=== PATIENT | male | born 1990 | race Caucasian/White ===

== ENCOUNTER 2020-06-06 12:46 | Inpatient (IN) | payer BC, OTHER ==
[~2020-06-06] VITALS: Ht 165.1 cm; Wt 70.8 kg
[~2020-06-06 12:46] MED LIST: ACET500C94 PO
[2020-06-06 12:52] VITALS: BP 125/78
--- NOTE | 2020-06-06 12:56 | NUR ---
AMB TO BED 03 Addendum: 06/06/20 at 1304 by DARÍO BED 4
--- NOTE | 2020-06-06 13:06 | NUR ---
29 YO MALE CO RIGHT LOWER ABD PAIN. PT HAD APPY IN MARCH AND "CLEAN UP" PROCEDURE IN APRIL. PAIN UPON PALPATION AND SMALL MASS FELT ON RLQ. PT STATES THAT PAIN RADIATES TO BACK WHEN WALKING. PAIN IS 10/10 AT THIS TIME. NAUSEA, NO V/D.
[2020-06-06] MEDS ORDERED: NACL 0.9% 1,000 ML IV ONE (13:14)
[2020-06-06] MEDS ORDERED: KETOROLAC 30 MG/ML VIAL IVP ONE (13:15)
[2020-06-06] MEDS ORDERED: ONDANSETRON 4 MG/2 ML VIAL IVP ONE (13:15)
[2020-06-06 13:57] LABS: BASOPHILS % (AUTO) 0.1 % (0.0-2.0); EOSINOPHILS % (AUTO) 0.1 % (0.0-4.0); HEMATOCRIT 46.4 % (36-52); HEMOGLOBIN 15.6 g/dL (12.0-18.0); LYMPHOCYTES # (AUTO) 1.9 K/uL (2.0-11.5); MEAN CORPUSCULAR HEMOGLOBIN 30 pg (27-31); MEAN CORPUSCULAR HGB CONC 34 g/dL (33-37); MEAN CORPUSCULAR VOLUME 88.4 fL (80-94); MONOCYTES # (AUTO) 1.3 K/uL (0.8-1.0); NEUTROPHILS # (AUTO) 8.5 K/uL (1.8-7.7); NEUTROPHILS % (AUTO) 72.8 % (42.2-75.2); PLATELET COUNT (AUTO) 202 K/uL (140-450); RED BLOOD CELL COUNT(AUTO) 5.25 MIL/uL (4.20-6.10); RED CELL DISTRIBUTION WIDTH 12.7 % (11.6-13.7); WHITE BLOOD COUNT (AUTO) 11.6 K/uL (4.8-10.8)
[2020-06-06 14:11] LABS: ANION GAP 14.9 (8-16); CARBON DIOXIDE 26.9 mmol/L (21-32); CREATININE 0.8 mg/dL (0.6-1.3); POTASSIUM 3.8 mmol/L (3.5-5.1); TOTAL BILIRUBIN 1.1 mg/dL (0.0-1.0)
[2020-06-06 14:14] LABS: APPEARANCE,URINE HAZY (CLEAR); BILIRUBIN,URINE NEGATIVE (NEGATIVE); BLOOD, URINE 1+ (NEGATIVE); COLOR,URINE YELLOW (YELLOW); LEUKOCYTE ESTERASE ,URINE NEGATIVE (NEGATIVE); NITRITE, URINE NEGATIVE (NEGATIVE); UGLUCOSE NEGATIVE (NEGATIVE)
[2020-06-06 14:32] LABS: RBC,URINE 0-5 /HPF (0-5); WBC,URINE NONE SEEN /HPF (0-5)
--- NOTE | 2020-06-06 14:40 | NUR ---
PT TAKEN TO CT VIA WC
[2020-06-06] MEDS ORDERED: PIPERACILLIN/TAZOBACTAM 3.375 GM in DEXTROSE 5% 50 ML IV ONE (15:35)
[2020-06-06] MEDS ORDERED: metroNIDAZOLE 500 MG/NS PREMIX 100 ML IV ONE (15:35)
[2020-06-06] MEDS ORDERED: PIPERACILLIN/TAZOBACTAM 3.375 GM VIAL IV ONE (15:39)
[2020-06-06] MEDS ORDERED: ZOLPIDEM 5 MG TAB PO PRN (16:00)
[2020-06-06] MEDS ORDERED: HYDROcodone/APAP 5/325 MG 1 TAB TAB PO PRN (16:00)
[2020-06-06] MEDS ORDERED: MORPHINE SULFATE 2 MG/ML SYR IVP PRN (16:00)
[2020-06-06] MEDS ORDERED: DOCUSATE SODIUM 100 MG GELCAP PO PRN (16:00)
[2020-06-06] MEDS ORDERED: ACETAMINOPHEN 325 MG TAB PO PRN (16:00)
[2020-06-06] MEDS ORDERED: ONDANSETRON 4 MG/2 ML VIAL IM/IVP PRN (16:00)
[2020-06-06] MEDS ORDERED: LORazepam 2 MG/ML VIAL IM/IVP PRN (16:00)
[2020-06-06 16:36] LABS: PROTHROMBIN TIME 10.5 secs (10.8-13.4)
[2020-06-06 16:49] LABS: CHOL/HDL RATIO 3.4 (1-4.5); MAGNESIUM 1.7 mg/dL (1.8-2.4); PHOSPHORUS 2.7 mg/dL (2.5-4.9); THYROID STIMULATING HORMONE 0.12 uIU/mL (0.34-3.74)
[2020-06-06 17:58] LABS: BARBITURATE, URINE NEGATIVE ng/ml (NEG <=200); BENZODIAZEPINE, URINE NEGATIVE ng/mL (NEG <=200); CANNABINOID, URINE NEGATIVE ng/mL (NEG <=50); COCAINE, URINE NEGATIVE ng/mL (NEG <=300); OPIATE, URINE POSITIVE ng/mL (NEG <=2000); PHENCYCLIDINE SCREEN,URINE NEGATIVE ng/mL (NEG <=25)
[2020-06-06 18:10] VITALS: BP 114/60
--- NOTE | 2020-06-06 18:10 | NUR ---
RECEIVED REPORT FROM ER NURSE, PT AMBULATED TO BED, PT IS STABLE, NO SIGNS OF RESPIRATORY DISTRESS NOTED, PT HAS LAC 20G SALINE LOCK, WILL ADMINISTERED SCHEDULED FLUIDS ONCE VERIFIED, INTRODUCE PT TO ROOM, EXPLAINED USE OF CALL LIGHT, BED IN LOW POSITION, OBTAIN MRSA SWAB SAMPLE, SAFETY MEASURES IN PLACE, CALL LIGHT WITHIN REACH, UPDATED WHITE BOARD.
--- NOTE | 2020-06-06 18:20 | NUR ---
Patient will be admitted to care of DR BOURNE. Admited to MS. Will go to room 112B. Belongings list completed. Report to AMY WHITMAN.
[2020-06-06] MEDS: NACL 0.9% 1,000 ML IV SCH (18:52)
--- NOTE | 2020-06-06 18:54 | NUR ---
ADMINISTERED SCHEDULED FLUID, EDUCATION PROVIDED, PT VERBALIZED UNDERSTANDING, PT TOLERATED WELL, PT IS STABLE, CALL LIGHT WITHIN REACH.
--- NOTE | 2020-06-06 19:09 | NUR ---
NOTIFIED DR BOURNE PT DOES NOT WANT MORPHINE, RECEIVED TORB FOR TORADOL 30MG IV Q4H PRN, WILL INPUT ORDER AND CARRY IT OUT. Addendum: 06/06/20 at 1910 by Ria Serra RN DR BOURNE SAID TO D/C MORPHINE
[2020-06-06] MEDS ORDERED: KETOROLAC 30 MG/ML VIAL IVP PRN (19:15)
--- NOTE | 2020-06-06 19:15 | NUR ---
ENDORSE PT TO NIGHT NURSE FOR CONTINUITY OF CARE, PT IS STABLE
--- NOTE | 2020-06-06 19:15 | NUR ---
RECEIVED PT FROM DAY RN. PT AOX4 ON ROOM AIR. RESPIRATIONS EVEN AND UNLABORED. NO DISTRESS NOTED. C/O PAIN AT RIGHT LOWER QUADRANT 10/10. WILL MEDICATE ONCE PRN PAIN MEDICATION VERIFIED. SKIN WARM DRY INTACT. IV SITE LAC 20G, PATENT AND INTACT, RUNNING NS AT 120 ML/HR. SAFETY MEASURES IN PLACE. CALL LIGHT WITHIN REACH. WILL CONTINUE TO MONITOR
--- NOTE | 2020-06-06 19:49 | NUR ---
PT C/O OF RIGHT ABDOMINAL PAIN, 10/10, ACHING. ADMINISTERED PRN PAIN MEDICATION PER MD. WILL CONTINUE TO MONITOR
--- NOTE | 2020-06-06 22:00 | NUR ---
PT ASLEEP IN BED. EASILY AROUSABLE TO NAME AND LIGHT TOUCH. NO DISTRESS NOTED. DENIES PAIN. WILL CONTINUE TO MONITOR
[2020-06-06] MEDS ORDERED: MAG SULF 2000 MG/WATER PREMIX 50 ML IV PRN (23:00)
[2020-06-06] MEDS ORDERED: POTASSIUM CHLORIDE 10 MEQ TABER PO PRN (23:00)
[2020-06-07] VITALS: BP 99/58
[2020-06-07] MEDS ORDERED: PIPERACILLIN/TAZOBACTAM 2.25 GM VIAL IV ONE (00:04)
[2020-06-07] MEDS: PIPERACILLIN/TAZOBACTAM 2.25 GM in DEXTROSE 5% 50 ML IV SCH ×3 (00:07→17:49)
[2020-06-07] MEDS: NACL 0.9% 1,000 ML IV SCH ×2 (00:15→06:44)
--- NOTE | 2020-06-07 00:45 | NUR ---
PT ASLEEP IN BED. RESPIRATIONS EVEN AND UNLABORED. NO DISTRESS NOTED. WILL CONTINUE TO MONITOR.
[2020-06-07] MEDS: metroNIDAZOLE 500 MG/NS PREMIX 100 ML IV SCH ×3 (01:25→18:40)
--- NOTE | 2020-06-07 01:53 | NUR ---
PT MAGNESIUM 1.7. ADMINISTERED PRN MAGNESIUM PER MD ORDERS. PT TOLERATED WELL. NO DISTRESS NOTED. WILL CONTINUE TO MONITOR
[2020-06-07 04:00] VITALS: BP 117/56
--- NOTE | 2020-06-07 04:45 | NUR ---
PT ASLEEP IN BED. NO DISTRESS NOTED. WILL CONTINUE TO MONITOR
[2020-06-07 07:17] LABS: ANION GAP 11.4 (8-16); CARBON DIOXIDE 27.4 mmol/L (21-32); CREATININE 0.6 mg/dL (0.6-1.3); MAGNESIUM 2.3 mg/dL (1.8-2.4); PHOSPHORUS 2.8 mg/dL (2.5-4.9); POTASSIUM 3.8 mmol/L (3.5-5.1)
--- NOTE | 2020-06-07 07:20 | NUR ---
RECEIVED REPORT FROM ANATOMIC PATHOLOGY MANAGER FOR CONTINUITY OF CARE. PATIENT RESTING IN BED, AAOX4.RESPIRATORY EVEN AND UNLABORED ON ROOM AIR. IV SITE LEFT AC 20G INFUSING NS 120CC/HR. SKIN WARM AND DRY, INTACT. NPO EXCEPT MEDS. NO ACUTE DISTRESS NOTED. SAFETY MEASURES IN PLACE, WILL CONTINUE TO MONITOR.
--- NOTE | 2020-06-07 07:20 | NUR ---
ENDORSED PT TO DAY RN FOR CONTINUITY OF CARE, PT IS STABLE
[2020-06-07 07:49] LABS: BASOPHILS % (AUTO) 0.2 % (0.0-2.0); EOSINOPHILS # (AUTO) 0.1 K/uL (0-0.4); EOSINOPHILS % (AUTO) 1.1 % (0.0-4.0); HEMATOCRIT 41.8 % (36-52); LYMPHOCYTES # (AUTO) 1.7 K/uL (2.0-11.5); LYMPHOCYTES % (AUTO) 16.2 % (20.5-51.1); MEAN CORPUSCULAR HEMOGLOBIN 30 pg (27-31); MEAN CORPUSCULAR HGB CONC 33 g/dL (33-37); MEAN CORPUSCULAR VOLUME 88.4 fL (80-94); MONOCYTES # (AUTO) 1.3 K/uL (0.8-1.0); MONOCYTES % (AUTO) 12.2 % (1.7-9.3); NEUTROPHILS # (AUTO) 7.2 K/uL (1.8-7.7); NEUTROPHILS % (AUTO) 70.3 % (42.2-75.2); PLATELET COUNT (AUTO) 185 K/uL (140-450); RED BLOOD CELL COUNT(AUTO) 4.73 MIL/uL (4.20-6.10); WHITE BLOOD COUNT (AUTO) 10.3 K/uL (4.8-10.8)
--- NOTE | 2020-06-07 08:32 | NUR ---
SCHEDULED MORNING MEDICATION ADMINISTERED, EDUCATION PROVIDED, PATIENT TOLERATED WELL. SAFETY MEASURES IN PLACE, WILL CONTINUE TO MONITOR.
--- NOTE | 2020-06-07 09:28 | NUR ---
PATIENT HAS BEEN SCREENED AND CATEGORIZED HIGH NUTRITION RISK. PATIENT WILL BE SEEN WITHIN 1-2 DAYS OF ADMISSION. 06/07/20-06/08/[address]
--- NOTE | 2020-06-07 14:48 | NUR ---
DC PLANNIN YRS OLD MALE PATIENT WAS ADMITTED FROM HOME WITH A DX OF INTRA ABDOMINAL ABSCESS. PT HAD RECENT APPENDECTOMY AT [facility] WITH RECENT INFECTION ON 04/27/20. PT REFUSED TO GO BACK TO [facility]. CT ABD SHOWED A DILATED 1.5 CM TUBULAR STRUCTURE ADJACENT TO THE CECUM, BORDERLINE HEPATOMEGALY. STARTED ON IVF, IV ABX ZOSYN AND FLAGYL. BLOOD CULTURE PENDING. CONSULTED WITH SURGEON DR KOCH AND ID DR SIMMONS. DC PLAN TO G HOME WHEN STABLE CM TO FOLLOW Addendum: 06/08/20 at 1455 by Leticia Abarca CM DC PLANNING: SEEN BY DR KOCH, CONTINUE IV ABX ZOSYN AND FLAGYL AND RECOMMENDED ID DR SIMMONS CONSULTATION. AWAITING FOR ID RECOMMENDATION. CM TO FOLLOW
--- NOTE | 2020-06-07 15:31 | NUR ---
06/07/20 RD INITIAL ASSESSMENT COMPLETED PLEASE REFER TO NUTRITION ASSESSMENT UNDER CARE ACTIVITY FOR ESTIMATED NUTRITIONAL NEEDS. 1. CONTINUE REGULAR DIET TOLERATED 2. CONSIDER ENSURE IF PO INTAKE <75% 3. RD TO FOLLOW-UP 3-5 DAYS, MODERATE RISK JESSENIA ZELAYA, RD
[2020-06-07 16:00] VITALS: BP 114/67
--- NOTE | 2020-06-07 16:14 | NUR ---
METABOLIC SPECIALIST NOTE: Patient's Orientation Unable To Assess Information Provided By GENE HARPER - Comments SW WAS UNABLE TO MEET PATIENT AT BEDSIDE. SW COMPLETED ASSESSMENT WITH PATIENT'S , GENE. Supervisor [employer], Realtionship and Phone Number GENE CHAPIN [phone] Healthcare Power of Windows Infrastructure Engineer No Does Patient Have a POLST No Identifying Problems No Social Work Triggers Is A Social Work Consult Needed No Mandate Report Filed No Explanation Of Identifying Problems PATIENT IS A 29-YEAR-OLD MALE ADMITTED FOR INTRA ABDOMINAL ABSCESS. PATIENT HAS PMHX OF RECENT APPENDECTOMY W/ UNSPECIFIED ABDOMINAL INFECTION. Admitted From Home Pre-Admission Level Of Functioning Status Independent/Ambulatory Prior Resources/Services Used In Last 12 Months No Prior Resources Used Prior DME No Prior DME Used Living Situation Lives With Family House Patient Had Caregiver No Home Support No Caregiver Issues Financial Issues No Known Financial Issue Factors/Needs No D/C Needs Identified Pt/Rep Participated In Discharge Plan Yes Patient/Family Agress With Discharge Plan Yes Discharge Plan Comments TENTATIVE DISCHARGE PLAN IS FOR PATIENT TO RETURN HOME. DC Plan Status Initiated
--- NOTE | 2020-06-07 17:49 | NUR ---
ADMINISTERED IV ZOSYN, PATIENT DENIES DISCOMFORT, SAFETY MEASURES IN PLACE, WILL CONTINUITY OF CARE.
--- NOTE | 2020-06-07 18:40 | NUR ---
ADMINISTERED IV FLAGYL. PATIENT TOLERATED WELL, PATIENT IN STABLE CONDITION.
--- NOTE | 2020-06-07 19:30 | NUR ---
ENDORSED PATIENT TO SUSPENDER MAKER NURSE FOR CONTINUITY OF CARE.
--- NOTE | 2020-06-07 19:35 | NUR ---
RECEIVED PT FROM DAY RN. AOX4 ON ROOM AIR. RESPIRATIONS EVEN AND UNLABORED. NO DISTRESS NOTED. NO C/O PAIN AT THIS TIME. IV SITE LAC 20G, INTACT AND PATENT, RUNNING NS AT 120 ML/HR. SAFETY MEASURES IN PLACE. CALL LIGHT WITHIN REACH. WILL CONTINUE TO MONITOR.
--- NOTE | 2020-06-07 21:22 | NUR ---
ADMINISTERED HEPARIN SQ TO PT PER MD ORDERS. PT PLATELET IS 185. PT TOLERATED WELL. NO DISTRESS NOTED. WILL CONTINUE TO MONITOR
--- NOTE | 2020-06-07 22:00 | NUR ---
PT AMBULATED BACK AND FORTH FROM HIS ROOM DOWN THE HALLWAY WITH STEADY GAIT. PT TOLERATED WELL. NO C/O AT THIS TIME. NO DISTRESS NOTED. WILL CONTINUE TO MONITOR PT
[2020-06-08] VITALS: BP 102/67
[2020-06-08] MEDS ORDERED: PIPERACILLIN/TAZOBACTAM 2.25 GM VIAL IV ONE ×2 (00:10→00:11)
[2020-06-08] MEDS: PIPERACILLIN/TAZOBACTAM 4.5 GM in DEXTROSE 5% 100 ML IV SCH ×5 (00:26→23:40)
--- NOTE | 2020-06-08 00:26 | NUR ---
ADMINISTERED IV ZOSYN, PATIENT DENIES DISCOMFORT, SAFETY MEASURES IN PLACE, WILL CONTINUE TO MONITOR
--- NOTE | 2020-06-08 02:45 | NUR ---
PT ASLEEP IN BED. RESPIRATIONS EVEN AND UNLABORED. NO DISTRESS NOTED. WILL CONTINUE TO MONITOR
--- NOTE | 2020-06-08 05:35 | NUR ---
PT ASLEEP IN BED. RESPIRATIONS EVEN AND UNLABORED. NO DISTRESS NOTED. WILL CONTINUE TO MONITOR
[2020-06-08] MEDS ORDERED: PIPERACILLIN/TAZOBACTAM 4.5 GM VIAL IV ONE (05:54)
--- NOTE | 2020-06-08 07:30 | NUR ---
RECEIVED REPORT FROM FIREBRICK AND REFRACTORY TILE REPAIRER NURSE FOR CONTINUITY OF CARE. PATIENT SLEEPING IN BED WITH NO ACUTE DISTRESS NOTED. VISIBLE CHEST RISE AND FALLS. SAFETY MEASURES IN PLACE, WILL CONTINUE TO MONITOR.
--- NOTE | 2020-06-08 07:30 | NUR ---
ENDORSED PT TO DAY RN FOR CONTINUITY OF CARE. PT IS IN STABLE CONDITION
[2020-06-08 07:54] LABS: BASOPHILS % (AUTO) 0.4 % (0.0-2.0); EOSINOPHILS # (AUTO) 0.2 K/uL (0-0.4); EOSINOPHILS % (AUTO) 3.7 % (0.0-4.0); HEMATOCRIT 42.2 % (36-52); HEMOGLOBIN 13.9 g/dL (12.0-18.0); LYMPHOCYTES # (AUTO) 1.9 K/uL (2.0-11.5); LYMPHOCYTES % (AUTO) 31.4 % (20.5-51.1); MEAN CORPUSCULAR HEMOGLOBIN 30 pg (27-31); MEAN CORPUSCULAR HGB CONC 33 g/dL (33-37); MEAN CORPUSCULAR VOLUME 89.6 fL (80-94); MONOCYTES # (AUTO) 0.7 K/uL (0.8-1.0); MONOCYTES % (AUTO) 12.2 % (1.7-9.3); NEUTROPHILS # (AUTO) 3.2 K/uL (1.8-7.7); NEUTROPHILS % (AUTO) 52.3 % (42.2-75.2); PLATELET COUNT (AUTO) 216 K/uL (140-450); RED BLOOD CELL COUNT(AUTO) 4.71 MIL/uL (4.20-6.10); RED CELL DISTRIBUTION WIDTH 12.9 % (11.6-13.7); WHITE BLOOD COUNT (AUTO) 6.1 K/uL (4.8-10.8)
[2020-06-08 08:00] VITALS: BP 97/63
[2020-06-08 08:06] LABS: ANION GAP 12.5 (8-16); CARBON DIOXIDE 27.3 mmol/L (21-32); CREATININE 0.7 mg/dL (0.6-1.3); POTASSIUM 3.8 mmol/L (3.5-5.1)
[2020-06-08 08:20] LABS: MAGNESIUM 1.9 mg/dL (1.8-2.4); PHOSPHORUS 3.5 mg/dL (2.5-4.9)
[2020-06-08 09:07] LABS: T4 (THYROXINE) 9.2 ug/dL (4.5-12.0)
--- NOTE | 2020-06-08 09:20 | NUR ---
SCHEDULED MORNING MEDICATION ADMINISTERED, EDUCATION PROVIDED, PATIENT TOLERATED WELL, SAFETY MEASURES IN PLACE, WILL CONTINUE TO MONITOR.
--- NOTE | 2020-06-08 13:04 | NUR ---
IV ZOSYN ADMINISTERED VIA IVP, EDUCATION PROVIDED, PATIENT TOLERATED WELL. PATIENT DENIES PAIN AT THIS TIME. WILL CONTINUE TO MONITOR.
--- NOTE | 2020-06-08 15:02 | NUR ---
MADE ROUNDS, PATIENT SITTING IN BED, WITH NO PAIN COMPLAINTS, SAFETY MEASURES IN PLACE. WILL CONTINUE TO MONITOR.
[2020-06-08 16:00] VITALS: BP 109/61
--- NOTE | 2020-06-08 19:00 | NUR ---
IV ZOSYN ADMINISTERED. PATIENT TOLERATED WELL. NO PAIN NOTED AT THIS TIME. SAFETY MEASURES IN PLACE. WILL ENDORSE PATIENT TO INDUSTRIAL CLEANER NURSE.
--- NOTE | 2020-06-08 19:28 | NUR ---
ENDORSED PATIENT TO PLUSH CUTTER RN FOR CONTINUITY OF CARE, PATIENT RESTING IN BED, WITH NO ACUTE DISTRESS NOTED.
[2020-06-08] MEDS: NACL 0.9% 1,000 ML IV SCH ×2 (19:45→23:40)
--- NOTE | 2020-06-08 20:00 | NUR ---
RECEIVED REPORT FROM THE DAY RN REGARDING THE PT FOR CONTINUITY OF CARE. PT A/A/OX4, AMBULATORY. PT LAYING IN BED WATCHING TV DURING ROUNDS. DENIES ANY ABDOMINAL PAIN, NAUSEA AND VOMITING. PT HAD 2 BM'S TODAY PER DAY RN. NOT IN ANY DISTRESS NO COMPLAIN AT THIS TIME. IVF INFUSING ORDERED. CALL LIGHT WITHIN REACH. WILL CONTINUE POC.
--- NOTE | 2020-06-08 22:00 | NUR ---
ADMINISTERED ALL THE SCHEDULED MEDICATIONS ORDERED. PT TOLERATED IT WELL. SAFETY MEASURES IN PLACED.
[2020-06-09] VITALS: BP 113/66
--- NOTE | 2020-06-09 | NUR ---
VITAL SIGNS STABLE, AFEBRILE, SATING 98% ON RA. NO COMPLAIN OF PAIN AT THIS TIME.CALL LIGHT WITHIN REACH.
--- NOTE | 2020-06-09 02:43 | NUR ---
PATIENT SLEEPING. VISIBLE CHEST RISE AND FALL NOTED. SAFETY MEASURES IN PLACED.
--- NOTE | 2020-06-09 05:13 | NUR ---
PT ASLEEP AT THIS TIME. VISIBLE CHEST RISE AND FALL NOTED. NOT IN ANY DISTRESS. CALL LIGHT WITHIN REACH.
[2020-06-09] MEDS: PIPERACILLIN/TAZOBACTAM 4.5 GM in DEXTROSE 5% 100 ML IV SCH ×2 (05:23→12:52)
--- NOTE | 2020-06-09 06:31 | NUR ---
PT STABLE AND NO ACUTE EVENT THROUGHOUT THE NIGHT. PT IS NOT IN DISTRESS. NO COMPLAIN AT THIS TIME. ALL NEEDS ATTENDED. CALL LIGHT WITHIN REACH. WILL ENDORSE THE PT TO THE ONCOMING RN FOR CONTINUITY OF CARE.
[2020-06-09 07:20] LABS: MAGNESIUM 1.8 mg/dL (1.8-2.4); PHOSPHORUS 4.2 mg/dL (2.5-4.9)
[2020-06-09 07:22] LABS: BASOPHILS % (AUTO) 0.7 % (0.0-2.0); EOSINOPHILS # (AUTO) 0.3 K/uL (0-0.4); EOSINOPHILS % (AUTO) 6.7 % (0.0-4.0); HEMOGLOBIN 14.4 g/dL (12.0-18.0); LYMPHOCYTES # (AUTO) 1.8 K/uL (2.0-11.5); LYMPHOCYTES % (AUTO) 42.3 % (20.5-51.1); MEAN CORPUSCULAR HEMOGLOBIN 30 pg (27-31); MEAN CORPUSCULAR HGB CONC 34 g/dL (33-37); MEAN CORPUSCULAR VOLUME 87.8 fL (80-94); MONOCYTES # (AUTO) 0.5 K/uL (0.8-1.0); MONOCYTES % (AUTO) 12.2 % (1.7-9.3); NEUTROPHILS # (AUTO) 1.6 K/uL (1.8-7.7); NEUTROPHILS % (AUTO) 38.1 % (42.2-75.2); PLATELET COUNT (AUTO) 252 K/uL (140-450); RED BLOOD CELL COUNT(AUTO) 4.78 MIL/uL (4.20-6.10); WHITE BLOOD COUNT (AUTO) 4.3 K/uL (4.8-10.8)
[2020-06-09 07:25] LABS: ANION GAP 12.2 (8-16); CARBON DIOXIDE 27.6 mmol/L (21-32); CREATININE 0.8 mg/dL (0.6-1.3); POTASSIUM 3.8 mmol/L (3.5-5.1)
--- NOTE | 2020-06-09 07:30 | NUR ---
PATIENT STABLE. ENDORSED PT TO THE ONCOMING RN RELYN FOR CONTINUITY OF CARE. SIGNING OFF.
--- NOTE | 2020-06-09 07:31 | NUR ---
RECEIVED ENDORSEMENT FROM NIGHT, AWAKE, ALERT,ORIENTEDX4, BREATHING SPONTANEOUSLY AT ROOM AIR, NOT IN DISTRESS NOTED. SAFETY MEASURES IN PLACE.
[2020-06-09 08:00] VITALS: BP 112/67
--- NOTE | 2020-06-09 09:16 | NUR ---
FULLY AWAKE AND ALERT, DUE MEDICATION GIVEN
--- NOTE | 2020-06-09 10:39 | NUR ---
AMBULATORY AROUND THE ROOM , NO COMPLAINED OF PAIN NOTED.
--- NOTE | 2020-06-09 12:55 | NUR ---
FULLY AWAKE AND ALERT, DUE MEDICATION GIVEN
[2020-06-09] MEDS ORDERED: METR500T1 PO (13:22)
[2020-06-09] MEDS ORDERED: CIPR500T9 PO (13:22)
[2020-06-09] MEDS ORDERED: LACT10CA PO (13:22)
--- NOTE | 2020-06-09 14:05 | NUR ---
WITH DISCHARGE ORDER, DISCHARGED PACKET INSTRUCTION PREPARED. IV CANNULA REMOVED AND DRESSING APPLIED.
[2020-06-09 16:37] VITALS: BP 107/61
[2020-06-09 16:45] VITALS: BP 107/61
--- NOTE | 2020-06-09 17:35 | NUR ---
DISCHARGED IN STABLE CONDITION AMBULATORY AND INFANT NANNY BY HIS VIA PRIVATE VEHICLE.
== END 2020-06-09 17:40 | disposition home or self-care (01) | DRG 373 ==
LOC: MED 12:46 → MTU 15:56
DX: K65.1 Peritoneal abscess (principal); E83.42 Hypomagnesemia; Z90.49 Acquired absence of other specified parts of digestive tract
CPT/HCPCS: 36415; 80048; 80053; 80305; 81001; 82150; 83036; 83605; 83690; 83735; 83880; 84100; 84134; 84436; 84443; 85025; 85610; 85730; 87040; 87081; 96361; 96365; 96367; 96375; 99291; J1644; J1885; J2270; J2405; J2543; J3475; J3490; J7030; J7060; Q9967

== ENCOUNTER 2020-09-03 20:48 | Inpatient (IN) | payer BC, SELFPAY ==
[~2020-09-03] VITALS: Ht 165.1 cm; Wt 72.6 kg
[~2020-09-03 20:48] MED LIST changes: -ACET500C94 PO; +CIPR500T9 PO; +LACT10CA PO; +METR500T1 PO
[2020-09-03 20:55] VITALS: BP 121/79
--- NOTE | 2020-09-03 20:55 | NUR ---
TO BED # 04 AMBULATORY
--- NOTE | 2020-09-03 21:05 | NUR ---
30 Y/O MALE PRESENTED TO THE ED FROM HOME C/O 03/09 SHARP PAIN IN THE RIGHT LOWER QUADRANT OF HIS ABD WITH NAUSEA/BLOATING AND TENDERNESS TO TOUCH IN THE ABD. PT STATED THAT HE HAD AN APPENDECTOMY APRIL 25 2020, THE PT HAD ANOTHER SURGERY IN APRIL 2020 DUE TO AN INFECTION AT THE POST-OP SITE. PT STATED THAT HE HAD ANOTHER INFECTION OF THE POST OP SITE IN 2019. PT STATES HE'S BEEN TAKING IBUPROFEN FOR THE PAIN. BOWELS SOUNDS ARE HYPOACTIVEX4 QUADRANTS. DENIES VOMITING OR DIARRHEA. DENIES FEVER. NO LOCALIZED SWELING OR REDNESS TO THE AREA. PT IS SITTING UPRIGHT AND NOT IN ANY ACUTE DISTRESS AT THIS TIME. PMH: DENIES NKA
--- NOTE | 2020-09-03 21:15 | NUR ---
MCKAYLA MARIEE AT BEDSIDE FOR MEDICAL EVALUATION
[2020-09-03] MEDS ORDERED: ACETAMINOPHEN EXTRA STRENGTH 500 MG TAB PO ONE (21:20)
--- NOTE | 2020-09-03 21:28 | NUR ---
LAB AT BEDSIDE
--- NOTE | 2020-09-03 21:35 | NUR ---
PT AMBULATED TO RESTROOM WITH STEADY GAIT
[2020-09-03 21:37] LABS: BASOPHILS % (AUTO) 0.4 % (0.0-2.0); EOSINOPHILS # (AUTO) 0.1 K/uL (0-0.4); EOSINOPHILS % (AUTO) 2.7 % (0.0-4.0); HEMATOCRIT 45.5 % (36-52); HEMOGLOBIN 15.5 g/dL (12.0-18.0); LYMPHOCYTES % (AUTO) 42.4 % (20.5-51.1); MEAN CORPUSCULAR HEMOGLOBIN 30 pg (27-31); MEAN CORPUSCULAR HGB CONC 34 g/dL (33-37); MEAN CORPUSCULAR VOLUME 86.3 fL (80-94); MONOCYTES # (AUTO) 1.1 K/uL (0.8-1.0); MONOCYTES % (AUTO) 23.3 % (1.7-9.3); NEUTROPHILS # (AUTO) 1.5 K/uL (1.8-7.7); NEUTROPHILS % (AUTO) 31.2 % (42.2-75.2); PLATELET COUNT (AUTO) 218 K/uL (140-450); RED BLOOD CELL COUNT(AUTO) 5.27 MIL/uL (4.20-6.10); RED CELL DISTRIBUTION WIDTH 13.3 % (11.6-13.7); WHITE BLOOD COUNT (AUTO) 4.7 K/uL (4.8-10.8)
--- NOTE | 2020-09-03 21:40 | NUR ---
PT AMBULATED FROM RESTROOM TO ED BED 4 WITH STEADY GAIT
--- NOTE | 2020-09-03 21:45 | NUR ---
PT SIGNED CONSENT FORM FOR IV WITH CONTRAST
[2020-09-03 21:52] LABS: ANION GAP 10.2 (8-16); CARBON DIOXIDE 30.7 mmol/L (21-32); POTASSIUM 3.9 mmol/L (3.5-5.1); TOTAL BILIRUBIN 0.5 mg/dL (0.0-1.0)
[2020-09-03 23:10] LABS: APPEARANCE,URINE CLEAR (CLEAR); BILIRUBIN,URINE NEGATIVE (NEGATIVE); BLOOD, URINE TRACE-I (NEGATIVE); COLOR,URINE YELLOW (YELLOW); LEUKOCYTE ESTERASE ,URINE NEGATIVE (NEGATIVE); NITRITE, URINE NEGATIVE (NEGATIVE); UGLUCOSE NEGATIVE (NEGATIVE)
--- NOTE | 2020-09-03 23:20 | NUR ---
PT AMBULATED TO ED RESTROOM WITH STEADY GAIT
--- NOTE | 2020-09-03 23:23 | NUR ---
PT AMBULATED BACK TO ED BED 4 FROM THE RESTROOM WITH STEADY GAIT
--- NOTE | 2020-09-03 23:38 | NUR ---
MCKAYLA MARIEE AT BEDSIDE FOR RE-EVALUATION
[2020-09-04] MEDS ORDERED: ONDANSETRON 4 MG/2 ML VIAL IVP ONE
[2020-09-04] MEDS ORDERED: MORPHINE SULFATE 4 MG/ML SYR IVP ONE
[2020-09-04] MEDS ORDERED: ACETAMINOPHEN 325 MG TAB PO PRN (00:15)
[2020-09-04] MEDS ORDERED: ONDANSETRON 4 MG/2 ML VIAL IM/IVP PRN (00:15)
[2020-09-04] MEDS ORDERED: DOCUSATE SODIUM 100 MG GELCAP PO PRN (00:15)
[2020-09-04] MEDS ORDERED: MORPHINE SULFATE 2 MG/ML SYR IVP PRN (00:15)
--- NOTE | 2020-09-04 00:20 | NUR ---
PT GAVE ME PERMISSIN TO SPEAK WITH HIS IN THE LOBBY
--- NOTE | 2020-09-04 00:25 | NUR ---
SPOKE WITH THE PTS TO UPDATE ON THE PTS STATUS AND RECEIVE HIS PHONE STEMMER MACHINE
[2020-09-04 00:45] LABS: PHOSPHORUS 3.5 mg/dL (2.5-4.9)
--- NOTE | 2020-09-04 00:49 | NUR ---
PT AMBULATED TO RESTROOM WITH STEADY GAIT
--- NOTE | 2020-09-04 00:54 | NUR ---
PT AMBULATED TO BED 4 FROM RESTROOM WITH STEADY GAIT
--- NOTE | 2020-09-04 01:36 | NUR ---
CALLED AFTER HOURS PHARMACY AND SPOKE WITH WU TO VERIFY ORDERS
[2020-09-04] MEDS: NACL 0.9% 1,000 ML IV SCH ×2 (02:03→19:20)
--- NOTE | 2020-09-04 02:30 | NUR ---
PT IS RESTING WITH HOB IN SEMI-FOWLERS POSITION. PT IS CONNECTED TO THE SOUND MIXER SAO2@99%. BED IS LOCKED AND IN LOWEST POSITION. SIDE RAILSX1. PT IS NOT IN ANY ACUTE DISTRESS AT THIS TIME. WILL CONTINUE TO MONITOR.
--- NOTE | 2020-09-04 03:37 | NUR ---
Pt is laying on his left side with HOB in semi-keenan's position. bed is locked and in lowest position. side railsx1. pt is connected to the lunchroom monitor. visible rise and fall of chest noted. will continue to monitor.
--- NOTE | 2020-09-04 04:40 | NUR ---
PT IS RESTING WITH HOB IN SEMI-FOWLERS POSITION. PT IS CONNECTED TO THE FLAT BED OPERATOR. PT IS NOT IN ANY ACUTE DISTRESS AT THIS TIME.BED IS LOCKED AND IN LOWEST POSITION. SIDE RAILSX1. WILL CONTINUE TO MONITOR.
[2020-09-04] MEDS: metroNIDAZOLE 500 MG/NS PREMIX 100 ML IV SCH ×3 (05:19→20:34)
--- NOTE | 2020-09-04 05:30 | NUR ---
Pt is asleep, visible rise and fall of chest noted. pt is connected to the cardiac rn. bed is locked and in lowest position. side railsx1. pt is not in any acute distress at this time. will continue to monitor.
--- NOTE | 2020-09-04 05:40 | NUR ---
CALLED REPORT TO AMY MORALES FOR TRANSFER OF CARE.
[2020-09-04 05:55] VITALS: BP 121/65
--- NOTE | 2020-09-04 05:55 | NUR ---
RECEIVED PATIENT FROM ER VIA WHEELCHAIR FOR CONTINUITY OF CARE. AAOX4. RESPIRATIONS EVEN, UNLABORED. O2 SAT 96%. SKIN ASSESSMENT COMPLETED. SKIN WARM, DRY AND INTACT. IV SITE NOTED TO RIGHT AC 20G PATENT/INTACT, INFUSING FLUIDS WELL. PATIENT C/O ACHING LOWER ABDOMINAL PAIN 03/09. WILL MEDICATE ORDERED. ABDOMEN NONDISTENDED AND TENDER. PATIENT IS CONTINENT OF B/B. PATIENT AMBULATES WELL. MRSA SCREEN COMPLETED. PATIENT ORIENTED TO ROOM/STAFF AND CALL LIGHT. PLAN OF CARE DISCUSSED. VITAL SIGNS STABLE. CALL LIGHT WITHIN REACH.
--- NOTE | 2020-09-04 05:55 | NUR ---
Patient will be admitted to care of . Admited to MED-SURG. Will go to room 110A. Belongings list completed. Report to AMY MORALES.
[2020-09-04] MEDS: HYDROcodone/APAP 5/325 MG 1 TAB TAB PO PRN ×2 (06:24→10:26)
--- NOTE | 2020-09-04 07:25 | NUR ---
RECEIVED REPORT FROM RUG CLEANER RN. POC DISCUSSED. PT IS RESTING AND CALM. PT VERBALIZED RLQ ABDOMINAL PAIN TO PALPATION. NO SOB NOTED. ON RA. DENIES CHEST PLAIN. AFEBRILE. NEEDS ATTENDED.
[2020-09-04 08:00] VITALS: BP 108/67
[2020-09-04] MEDS ORDERED: KETOROLAC 30 MG/ML VIAL IVP PRN (11:45)
[2020-09-04 12:00] VITALS: BP 118/66
--- NOTE | 2020-09-04 12:00 | NUR ---
PT IS RESTING AND CALM. KEPT PT ON NPO. NO S/S OF NAUSEA OR VOMITING. DENIES CHEST PLAIN.
[2020-09-04 16:00] VITALS: BP 122/69
--- NOTE | 2020-09-04 17:45 | NUR ---
DR. KRAUSE NOTIFIED PT'S BODY TEMP 102.0 ORDERED TO APPLY COOLING MEASURES AND GIVE PRN TYLENOL. NOTED.
--- NOTE | 2020-09-04 18:05 | NUR ---
TEMP RECHECKED 99.9 F. CONTINUE COOLING MEASURES. PT DENIES PAIN.
--- NOTE | 2020-09-04 19:29 | NUR ---
ENDORSED PT TO SHOE REPAIR SUPERVISOR RN. POC DISCUSSED. NO CHANGE OF CONDITION.
--- NOTE | 2020-09-04 19:30 | NUR ---
RECEIVED PT IN STABLE CONDITION FROM AM NURSE. AWAKE,ALERT AND ORIENTED X4. MED SURG PT. NO C/O ANY PAIN AT THIS TIME. IVF INFUSING WELL ON THE RT AC G#20.CLEAR AND PATENT. PLAN OF CARE DISCUSSED AND VERBALIZED UNDERSTANDING. FREQ ROUNDS NEEDED. BED ON LOW POSITION. SIDE RAILS UP X2. CALL LIGHT AND URINAL WITHIN REACH. WILL CONTINUE TO MONITOR.
[2020-09-04 20:00] VITALS: BP 107/63
--- NOTE | 2020-09-04 21:00 | NUR ---
CHECKED ON PT . AWAKE. NO C/O ANY DISCOMFORT NOTED.
--- NOTE | 2020-09-04 22:00 | NUR ---
MADE ROUNDS. ASLEEP. NO S/S OF ANY DISCOMFORT NOR PAIN NOTED.
--- NOTE | 2020-09-05 00:05 | NUR ---
INSTRUCTED PT NPO STATUS FOR THE SURGERY LATER TODAY. VERBALIZED UNDERSTANDING.
--- NOTE | 2020-09-05 03:00 | NUR ---
MADE ROUNDS. PT ASLEEP. NO S/S OF ANY PAIN NOTED.
[2020-09-05 04:00] VITALS: BP 109/68
[2020-09-05] MEDS: metroNIDAZOLE 500 MG/NS PREMIX 100 ML IV SCH ×3 (04:37→20:30)
--- NOTE | 2020-09-05 05:00 | NUR ---
INSTRUCTED PT TO CALL IF HAVING PAIN. DENIES ANY PAIN AT THIS TIME.
--- NOTE | 2020-09-05 06:55 | NUR ---
IV ACCESS RT AC INFILTRATED. STARTED A NE IV ON RT FOREARM G#22. CLEAR AND PATENT.
--- NOTE | 2020-09-05 07:30 | NUR ---
ENDORSED PT IN STABLE CONDITION TO AM NURSE.
[2020-09-05 08:00] VITALS: BP 117/72
--- NOTE | 2020-09-05 08:00 | NUR ---
RECEIVED REPORT FROM FLOUR DISTRIBUTOR FOR CONTINUITY OF CARE. PATIENT ALERT AWAKE ORIENTEDX4. NOT IN ANY DISTRESS NOTED. NPO OBSERVED FOR SURGERY SCHEDULED AT 1 PM TODAY. WITH IVF ON GOING AND INFUSING WELL. SURGICAL CONSENT SIGNED AND IN THE CHART. WILL START TO DO SURGICAL CHECKLIST. NEEDS ATTENDED. WILL CONTINUE TO MONITOR.
[2020-09-05 08:27] LABS: BASOPHILS % (AUTO) 0.3 % (0.0-2.0); EOSINOPHILS % (AUTO) 0.3 % (0.0-4.0); HEMATOCRIT 44.8 % (36-52); HEMOGLOBIN 15.2 g/dL (12.0-18.0); LYMPHOCYTES # (AUTO) 1.6 K/uL (2.0-11.5); LYMPHOCYTES % (AUTO) 25.4 % (20.5-51.1); MEAN CORPUSCULAR HEMOGLOBIN 30 pg (27-31); MEAN CORPUSCULAR HGB CONC 34 g/dL (33-37); MEAN CORPUSCULAR VOLUME 86.6 fL (80-94); MONOCYTES # (AUTO) 1.4 K/uL (0.8-1.0); MONOCYTES % (AUTO) 22.4 % (1.7-9.3); NEUTROPHILS # (AUTO) 3.2 K/uL (1.8-7.7); NEUTROPHILS % (AUTO) 51.6 % (42.2-75.2); PLATELET COUNT (AUTO) 225 K/uL (140-450); RED BLOOD CELL COUNT(AUTO) 5.17 MIL/uL (4.20-6.10); RED CELL DISTRIBUTION WIDTH 13.3 % (11.6-13.7); WHITE BLOOD COUNT (AUTO) 6.2 K/uL (4.8-10.8)
[2020-09-05 08:34] LABS: ANION GAP 11.2 (8-16); CARBON DIOXIDE 28.5 mmol/L (21-32); CREATININE 0.8 mg/dL (0.6-1.3); POTASSIUM 3.7 mmol/L (3.5-5.1)
--- NOTE | 2020-09-05 08:57 | NUR ---
PATIENT HAS BEEN SCREENED AND CATEGORIZED LOW NUTRITION RISK. PATIENT WILL BE SEEN WITHIN 7 DAYS OF ADMISSION. 09/10/[address]
--- NOTE | 2020-09-05 09:00 | NUR ---
IVPB ROCEPHIN GIVEN, NO REACTION NOTED. WILL CONTINUE TO MONITOR.
[2020-09-05] MEDS: NACL 0.9% 1,000 ML IV SCH ×2 (09:35→20:33)
--- NOTE | 2020-09-05 12:04 | NUR ---
SOCIAL WORK NOTE: Patient's Orientation Unable To Assess Information Provided By GENE HARPER - Comments SW WAS UNABLE TO MEET PATIENT AT BEDSIDE DUE TO MEDICAL CONDITION. SW COMPLETED ASSESSMENT WITH PATIENT'S . Developer Advocate, Realtionship and Phone Number GENE CALDERON [phone] Healthcare Power of System Developer Associate Manager No Does Patient Have a POLST No Identifying Problems No Social Work Triggers Is A Social Work Consult Needed No Mandate Report Filed No Explanation Of Identifying Problems PATIENT IS A 30-YEAR-OLD MALE ADMITTED FOR R/O APPENDICITIS. PATIENT HAS PMHX OF APPENEDECTOMY. PATIENT'S REPORTED NO HISTORY OF SUBSTANCE ABUSE OR MENTAL HEALTH. Admitted From Home Pre-Admission Level Of Functioning Status Independent/Ambulatory Prior Resources/Services Used In Last 12 Months No Prior Resources Used Prior DME No Prior DME Used Dialysis Comments N/A Living Situation Lives With Family House Other Living Situation/Comment PATIENT'S REPORTED THAT PATIENT LIVES WITH AND CHILDREN. Patient Had Caregiver No Home Support No Caregiver Issues Financial Issues No Known Financial Issue Referral To The Financial Counselor Needed No Factors/Needs No D/C Needs Identified Explanation And Or Other Factors Affecting/Possible DC Needs PATIENT'S STATED SHE WOULD PROVIDE TRANSPORTATION FOR PATIENT HOME. Pt/Rep Participated In Discharge Plan Yes Patient/Family Agress With Discharge Plan Yes Discharge Plan Comments TENTATIVE DISCHARGE PLAN IS FOR PATIENT TO RETURN HOME. DC Plan Status Initiated
--- NOTE | 2020-09-05 12:05 | NUR ---
SOCIAL WORK NOTE: Patient's Orientation Unable To Assess Information Provided By GENE HARPER - Comments SW WAS UNABLE TO MEET PATIENT AT BEDSIDE DUE TO MEDICAL CONDITION. SW COMPLETED ASSESSMENT WITH PATIENT'S . Wallpaperer, Realtionship and Phone Number GENE CALDERON [phone] Healthcare Power of Thread Weaver No Does Patient Have a POLST No Identifying Problems No Social Work Triggers Is A Social Work Consult Needed No Mandate Report Filed No Explanation Of Identifying Problems PATIENT IS A 30-YEAR-OLD MALE ADMITTED FOR R/O APPENDICITIS. PATIENT HAS PMHX OF APPENEDECTOMY. PATIENT'S REPORTED NO HISTORY OF SUBSTANCE ABUSE OR MENTAL HEALTH. Admitted From Home Pre-Admission Level Of Functioning Status Independent/Ambulatory Prior Resources/Services Used In Last 12 Months No Prior Resources Used Prior DME No Prior DME Used Dialysis Comments N/A Living Situation Lives With Family House Other Living Situation/Comment PATIENT'S REPORTED THAT PATIENT LIVES WITH AND CHILDREN. Patient Had Caregiver No Home Support No Caregiver Issues Financial Issues No Known Financial Issue Referral To The Financial Counselor Needed No Factors/Needs No D/C Needs Identified Explanation And Or Other Factors Affecting/Possible DC Needs PATIENT'S STATED SHE WOULD PROVIDE TRANSPORTATION FOR PATIENT HOME. Pt/Rep Participated In Discharge Plan Yes Patient/Family Agress With Discharge Plan Yes Discharge Plan Comments TENTATIVE DISCHARGE PLAN IS FOR PATIENT TO RETURN HOME. DC Plan Status Initiated
--- NOTE | 2020-09-05 12:45 | NUR ---
PATIENT OFF FLOOR, WENT TO OR, ALERT AWAKE ORIENTED X4,NOT IN ANY DISTRESS NOTED.
[2020-09-05] MEDS ORDERED: ONDANSETRON 4 MG/2 ML VIAL IVP PRN ×2 (13:00→16:10)
[2020-09-05] MEDS ORDERED: NACL 0.9% 1,000 ML IV SCH (13:00)
[2020-09-05] MEDS ORDERED: MEPERIDINE 25 MG/ML SYR IVP PRN ×2 (13:00→16:10)
[2020-09-05] MEDS ORDERED: HYDROmorphone 1 MG/ML AMP IVP PRN ×2 (13:00→16:10)
[2020-09-05] MEDS ORDERED: fentaNYL citrate 0.05 MG/ML VIAL ONE (13:32)
[2020-09-05] MEDS ORDERED: SUGAMMADEX SODIUM 200 MG/2 ML VIAL IV ONE (13:32)
[2020-09-05] MEDS ORDERED: SUCCINYLCHOLINE CHLORIDE 200 MG/10 ML VIAL IVP ONE (13:32)
[2020-09-05] MEDS ORDERED: ONDANSETRON 4 MG/2 ML VIAL ONE (13:32)
[2020-09-05] MEDS ORDERED: SEVOFLURANE 250 ML BTL INH ONE (13:32)
[2020-09-05] MEDS ORDERED: DEXAMETHASONE 4 MG/ML VIAL ONE (13:32)
[2020-09-05] MEDS ORDERED: MORPHINE SULFATE 4 MG/ML SYR ONE (13:32)
[2020-09-05] MEDS ORDERED: PROPOFOL 200 MG/20 ML VIAL IV ONE (13:32)
[2020-09-05] MEDS ORDERED: diphenhydrAMINE 50 MG/ML VIAL IVP PRN (16:10)
[2020-09-05] MEDS ORDERED: LACTATED RINGERS 1,000 ML IV SCH (16:10)
[2020-09-05] MEDS ORDERED: LIDOCAINE 1% 500 MG/50 ML VIAL ONE (16:16)
[2020-09-05] MEDS ORDERED: BUPIVACAINE-MPF 0.25% 30 ML VIAL INJ ONE (16:16)
[2020-09-05 17:00] VITALS: BP 117/72
--- NOTE | 2020-09-05 17:00 | NUR ---
PATIENT BACK FROM SURGERY, ALERT AWAKE ORIENTED. PATIENT HAS CHAIDEZ CATHETER AND RAKESH. VITALS TAKEN. WILL CONTINUE TO MONITOR.
--- NOTE | 2020-09-05 19:20 | NUR ---
RECEIVED PT ON BED WITH EYES CLOSED, EASILY AROUSABLE TO NAME, AAOX4, TOLERABLE PAIN 3/10 AT THIS TIME, 3X SMALL ABDOMINAL INCISION WITH DERMABAND, NO BLEEDING NOTED, RT RAKESH DRAIN WITH SANGUINOUS DRAINAGE 20ML AMOUNT NOTED, IVF INFUSING WELL, TOLERATING FULL LIQUID DIET, PLAN OF CARE DISCUSSED, CALL LIGHT WITHIN REACH.
[2020-09-05 20:00] VITALS: BP 114/66
[2020-09-05] MEDS: HYDROcodone/APAP 5/325 MG 1 TAB TAB PO PRN (21:13)
--- NOTE | 2020-09-05 21:13 | NUR ---
PT COMPLAINING OF ABDOMINAL PAIN, MEDICATED PRN WITH NORCO PO, FLAGYL IVPB INFUSING WELL, ALL NEEDS ATTENDED.
[2020-09-05] MEDS: HYDROmorphone 1 MG/ML AMP IVP PRN (23:34)
--- NOTE | 2020-09-05 23:34 | NUR ---
MINIMAL RELIEF FROM NORCO, MEDICATED PRN FOR PAIN OF 8/10 WITH DILAUDID IVP, J-P DRAIN WITH MINIMAL LIGHT RED DRAINAGE, CHAIDEZ CATHETER DRAINING WELL WITH LIGHT MICHELLE OUTPUT, IVF INFUSING WELL, CONTINUE TO MONITOR CLOSELY.
[2020-09-06 04:00] VITALS: BP 122/72
[2020-09-06] MEDS: metroNIDAZOLE 500 MG/NS PREMIX 100 ML IV SCH ×3 (05:00→21:06)
[2020-09-06] MEDS: HYDROmorphone 1 MG/ML AMP IVP PRN ×3 (05:42→14:56)
--- NOTE | 2020-09-06 05:45 | NUR ---
MEDICATED PRN FOR PAIN WITH DILAUDID IVP, RAKESH DRAIN WITH A TOTAL OF 30ML LIGHT SANGUINOUS FLUID, DENIES PASSING GAS BUT BURPING, ENCOURAGE TO AMBULATE TODAY, VERBALIZED UNDERSTANDING, MONITORED CLOSELY.
--- NOTE | 2020-09-06 07:25 | NUR ---
PT SLEEPING, NO SIGNS OF DISTRESS, REPORT GIVEN TO CHERRY FOR CONTINUITY OF CARE.
--- NOTE | 2020-09-06 08:00 | NUR ---
RECEIVED REPORT FROM ENERGY EFFICIENCY FINANCE MANAGER FOR CONTINUITY OF CARE. PATIENT ALERT AWAKE ORIENTED X4, NOT IN ANY DISTRESS NOTED. INITIAL ASSESSMENT INITIATED. WITH IVF ON GOING AND INFUSING WELL. CHAIDEZ CATHETER DRAINING TO YELLOWISH CLEAR OUTPUT. WITH RAKESH INTACT. NEEDS ATTENDED. WILL CONTINUE TO MONITOR.
[2020-09-06 08:16] LABS: BASOPHILS % (AUTO) 0.2 % (0.0-2.0); EOSINOPHILS % (AUTO) 0.1 % (0.0-4.0); HEMATOCRIT 41.5 % (36-52); LYMPHOCYTES % (AUTO) 16.2 % (20.5-51.1); MEAN CORPUSCULAR HEMOGLOBIN 29 pg (27-31); MEAN CORPUSCULAR HGB CONC 34 g/dL (33-37); MEAN CORPUSCULAR VOLUME 86.7 fL (80-94); MONOCYTES # (AUTO) 1.2 K/uL (0.8-1.0); MONOCYTES % (AUTO) 18.7 % (1.7-9.3); NEUTROPHILS # (AUTO) 4.2 K/uL (1.8-7.7); NEUTROPHILS % (AUTO) 64.8 % (42.2-75.2); PLATELET COUNT (AUTO) 241 K/uL (140-450); RED BLOOD CELL COUNT(AUTO) 4.79 MIL/uL (4.20-6.10); RED CELL DISTRIBUTION WIDTH 13.1 % (11.6-13.7); WHITE BLOOD COUNT (AUTO) 6.5 K/uL (4.8-10.8)
[2020-09-06 08:28] LABS: ANION GAP 11.6 (8-16); CARBON DIOXIDE 27.3 mmol/L (21-32); CREATININE 0.6 mg/dL (0.6-1.3); POTASSIUM 3.9 mmol/L (3.5-5.1)
--- NOTE | 2020-09-06 10:40 | NUR ---
CHAIDEZ CATHETER REMOVED BY DR. REEVES AND ORDER TO ADVANCE THE DIET TO SOFT DIET.
--- NOTE | 2020-09-06 11:59 | NUR ---
C/O OF 7/10 PAIN ON THE INCISION SITE, MEDICATED WITH DILAUDID ORDERED.WILL CONTINUE TO MONITOR.
--- NOTE | 2020-09-06 12:20 | NUR ---
DC PLANNIN YRS OLD MALE PATIENT WAS ADMITTED FROM HOME WITH A DX OF R/O APPENDICITIS. PT HAD A SURGICAL HX OF APPENDECTOMY ON MARCH 2020 AT [facility] CT ABD/PELVIS SHOWED PERSISTENT DILATED FLUID FILLED AND INFLAMED APPENDIX MEASURING P TO 19MM IN THICKNESS. SEEN BY DR REEVES AND PERFORMED LAP APPY WITH ILEOCOLECTOMY. TOLERATED WELL ADVANCED DIET TO FULL LIQUID. DC PLAN TO GO HOME WHEN STABLE CM TO FOLLOW
[2020-09-06] MEDS ORDERED: CEPH250C16 PO (12:32)
[2020-09-06] MEDS ORDERED: IBUP-2213 PO (12:33)
[2020-09-06 16:00] VITALS: BP 124/68
[2020-09-06] MEDS: NACL 0.9% 1,000 ML IV SCH (19:25)
[2020-09-06] MEDS: HYDROcodone/APAP 5/325 MG 1 TAB TAB PO PRN (19:29)
--- NOTE | 2020-09-06 19:40 | NUR ---
C/O PAIN WITH 6/10 ASKING FORE VICODIN, PATIENT MEDICATED. WILL CONTINUE TO MONITOR. REPORT GIVEN TO CARD DEALER FOR CONTINUITY OF CARE.
--- NOTE | 2020-09-06 19:41 | NUR ---
RECD. RESTING IN BED, AWAKE, A/OX4. RESPIRATION EVEN AND UNLABORED;. IV OS NS AT 60 ML/HR INFUSING, RIGHT FOREARM G 22. INCISION IN THE ABDOMEN (3) WITH DERMABOND, ALL DRY AND INTACT. WITH 1 RAKESH DRAINING SEROSANGUINEOUS FLUID MINIMAL AMOUNT. TOLERATING SOFT DIET, VOIDING WELL AND PASSING GAS. PAIN IN THE ABDOMEN 02/06, WAS JUST GIVEN PAIN MEDICATION, WILL CONTINUE TO MONITOR AND MEDICATE PER MD ORDER.
[2020-09-06 20:00] VITALS: BP 122/70
--- NOTE | 2020-09-06 21:00 | NUR ---
Patient's Plan of Care was discussed and reviewed with STORE CLERK: BOONE CALDWELL
--- NOTE | 2020-09-06 21:06 | NUR ---
BENIGNO IVPB INFUSED BY AMY BRADFORD.
--- NOTE | 2020-09-06 23:00 | NUR ---
AWAKE IN BED, WATCHING TV.
[2020-09-07] MEDS ORDERED: CALCIUM CARBONATE 500 MG TAB.CHEW PO PRN (00:30)
--- NOTE | 2020-09-07 01:00 | NUR ---
SLEEPING COMFORTABLY IN BED.
[2020-09-07] MEDS: HYDROmorphone 1 MG/ML AMP IVP PRN (02:31)
--- NOTE | 2020-09-07 03:00 | NUR ---
USES URINAL TO VOID, ENCOURAGED TO AMBULATE MORE TO BE ABLE TO RECOVER FASTER.
[2020-09-07 04:00] VITALS: BP 113/67
--- NOTE | 2020-09-07 05:00 | NUR ---
STILL SLEEPING COMFORTABLY IN BED.
[2020-09-07] MEDS: metroNIDAZOLE 500 MG/NS PREMIX 100 ML IV SCH (05:36)
--- NOTE | 2020-09-07 07:15 | NUR ---
REC'D REPORT FROM NIGHT NURSE, PT SLEEPING, STABLE CALL LIGHT WITHIN REACH, IV SITE DRY,CLEAN INTACT, BED LOWEST POSITION.
--- NOTE | 2020-09-07 07:20 | NUR ---
CONDITION REMAIN STABLE. ENDORSED TO AM SHIFT NURSE FOR CONTINUITY OF CARE.
[2020-09-07 08:00] VITALS: BP 122/77
[2020-09-07 08:29] LABS: BASOPHILS % (AUTO) 0.3 % (0.0-2.0); CARBON DIOXIDE 26.8 mmol/L (21-32); CREATININE 0.6 mg/dL (0.6-1.3); EOSINOPHILS # (AUTO) 0.1 K/uL (0-0.4); EOSINOPHILS % (AUTO) 1.1 % (0.0-4.0); HEMATOCRIT 42.9 % (36-52); HEMOGLOBIN 14.5 g/dL (12.0-18.0); LYMPHOCYTES # (AUTO) 1.8 K/uL (2.0-11.5); LYMPHOCYTES % (AUTO) 29.9 % (20.5-51.1); MEAN CORPUSCULAR HEMOGLOBIN 30 pg (27-31); MEAN CORPUSCULAR HGB CONC 34 g/dL (33-37); MEAN CORPUSCULAR VOLUME 87.3 fL (80-94); MONOCYTES # (AUTO) 1.1 K/uL (0.8-1.0); MONOCYTES % (AUTO) 19.2 % (1.7-9.3); NEUTROPHILS % (AUTO) 49.5 % (42.2-75.2); PLATELET COUNT (AUTO) 266 K/uL (140-450); POTASSIUM 3.8 mmol/L (3.5-5.1); RED BLOOD CELL COUNT(AUTO) 4.91 MIL/uL (4.20-6.10)
[2020-09-07] MEDS: HYDROcodone/APAP 5/325 MG 1 TAB TAB PO PRN (08:36)
--- NOTE | 2020-09-07 08:40 | NUR ---
MEDICATED PT PER MD ORDER, IV MED RUNNING, PATENT. GAVE TUMS BEFORE MEAL D/T ABD DISCOMFORT ORDERED BY MD. PT TOLERATED PROCEDURE WELL.
--- NOTE | 2020-09-07 10:37 | NUR ---
PT SLEEPING, CALL LIGHT WITHIN REACH. STABLE
--- NOTE | 2020-09-07 11:47 | NUR ---
HAVE DC ORDER, RAKESH DRAIN CURRENTLY AT 70ML. SENT DR. REEVES, MESSAGE INFORMING HIM, WILL WAIT FOR ADDITIONAL INSTRUCTION.
[2020-09-07 13:30] VITALS: BP 122/77
--- NOTE | 2020-09-07 14:47 | NUR ---
PT DISCHARGE PACKET GIVEN AND SIGNED FOR, PRESCRIPTION FOR [facility] HANDED TO PT. IV CATHETER REMOVED, INTACT, ID BAND REMOVED. PT DENIED PAIN AT TIME OF DISCHARGE. WHEELED TO IN STABLE CONDITION
== END 2020-09-07 14:30 | disposition home or self-care (01) | DRG 337 ==
LOC: MED 20:48 → MTU 09-04 00:08
PROVIDERS: ADMIT Hospitalist; ATTEND Hospitalist
PROC: 0DNJ4ZZ Release Appendix, Percutaneous Endoscopic Approach (ICD-10-PCS; 2020-09-05)
PROC: 0W9G4ZZ Drainage of Peritoneal Cavity, Percutaneous Endoscopic Approach (ICD-10-PCS; 2020-09-05)
PROC: 0DTJ4ZZ Resection of Appendix, Percutaneous Endoscopic Approach (ICD-10-PCS; principal; 2020-09-05 13:00)
DX: K35.33 Acute appendicitis with perforation, localized peritonitis, and gangrene, with abscess (principal); Z20.828 Contact with and (suspected) exposure to other viral communicable diseases; R73.9 Hyperglycemia, unspecified; K57.30 Diverticulosis of large intestine without perforation or abscess without bleeding; K66.0 Peritoneal adhesions (postprocedural) (postinfection); R74.01 Elevation of levels of liver transaminase levels; Z90.49 Acquired absence of other specified parts of digestive tract; Z79.899 Other long term (current) drug therapy
CPT/HCPCS: 36415; 76705; 80048; 80053; 81003; 82150; 83690; 83735; 84100; 85025; 87081; 96374; 96375; 99285; J0330; J0696; J1100; J1170; J1885; J2001; J2270; J2405; J2704; J3010; J3490; J7030; J7060; Q9967